=== PATIENT | female | born 1950 | race Caucasian/White ===

== ENCOUNTER 2017-09-07 15:54 | Observation (INO) | payer MEDICARE, BC ==
[2017-09-07] MEDS ORDERED: Famotidine 20 MG/2 ML SDV IVPUSH ONE (16:01)
[2017-09-07] MEDS ORDERED: Sodium Chloride 0.9% 10 ML Syringe FLUSH PRN ×2 (16:01→19:43)
--- NOTE | 2017-09-07 16:01 | EDM.PDOC ---
ED HPI GENERAL MEDICAL PROBLEM - General Chief Complaint: Syncope Stated Complaint: Syncope, laceration Time Seen by Provider: 09/07/17 15:55 Source of Information: Reports: Patient, Family (), Old Records ([facility] chart/EMR) History Limitations: Reports: No Limitations - History of Present Illness INITIAL COMMENTS - FREE TEXT/NARRATIVE: The patient was brought to the emergency room via private automobile by her for evaluation of a true syncopal episode, which occurred at about 15: 30 hours this afternoon. The patient was vacuuming the hardwood floor in her home when she had a true syncopal syncopal episode with no history of urine/ stool incontinence, seizure activity, postictal sedation, confusion, change in mental status, diplopia, visual changes, loss of consciousness, etc. The patient 's arrived to her side quickly thereafter with the patient having a small left eyebrow laceration, left-sided chest wall pain, and left humeral discomfort, which she rates at 5/10. No treatment prior to arrival. She has not had similar episodes in the past. She does complain of 5/10 pounding bilateral superior anterior headache with no history of significant headaches in the past other than at time of emergency room evaluation in this facility on 08/27/16. The patient denies any other chest pain/pressure, heart flutter, dizziness, orthostasis, orthopnea, diaphoresis, paresthesias, recent decreased exercise tolerance, or any other anginal-type symptoms. No recent history of abdominal pain, heartburn, nausea, diarrhea, melena, gross hematochezia, or any food intolerance, including fatty foods, etc.. The patient also denies any recent fever, cough, wheezing, dyspnea, etc.. Onset: Today, Sudden Onset Date: 09/07/17 Onset Time: 15:30 Duration: Constant Location: Reports: Head, Face, Chest, Upper Extremity, Left. Denies: Neck, Abdomen, Back, Upper Extremity, Right, Lower Extremity, Left, Lower Extremity, Right, Radiates to Quality: Reports: Ache, Same as Previous Episode Severity: Moderate Improves with: Reports: Rest Worsens with: Reports: Movement Context: Reports: Trauma (As above) Associated Symptoms: Reports: Chest Pain (Chest wall pain), Headaches, Syncope. 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 Denies: Cataract, Glaucoma, Macular Degeneration , Retinal Detachment Other HEENT History: Allergic rhinitis with chronic rhinosinusitis and eustachian tube dysfunction, nasal septum perforation requiring surgery/inserts as below, patient wears glasses, moderate bilateral hearing loss with no hearing aid therapy Cardiovascular History: Reports: Arrhythmia, Blood Clots/VTE/DVT, CAD, High Cholesterol, Other (See Below). 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 Denies: Asthma, COPD, Intubation, Difficult , PE, Pneumothorax, Pulmonary Fibrosis, Sleep Apnea Gastrointestinal History: Reports: Chronic Diarrhea. Denies: Celiac Disease, Cholelithiasis, Chronic Constipation, Colon Polyp, Diverticulosis, Gastritis, GERD, GI Bleed, Hepatitis, Hiatal Hernia, Inflammatory Bowel Disease, Irritable Bowel Syndrome, Jaundice, Pancreatitis Genitourinary History: Reports: None. Denies: Chronic Renal Insuffiency, Renal Calculus, STD, Urinary Incontinence, UTI, Recurrent SHIPMASTER History: Reports: Dysfunctional Uterine Bleeding, , Spontaneous , Therapeutic . Denies: Endometriosis, Fibroids : 5 Para: 4 (Full term without complications during pregnancies or deliveries) Other OB/BYN History: Menopause in her early 50s, voluntary AB about 6 weeks gestation at about age 16, dysmenorrhea with no previous diagnosis Musculoskeletal History: Reports: Arthritis, Back Pain, Chronic, Fracture, Fibromyalgia, Neck Pain, Chronic, Osteoarthritis, Osteoporosis, Other (See Below ). Denies: Amputation, Connective Tissue Disease, Gout, RA, SLE Other Musculoskeletal History: Severe myalgias since 2016 of unknown etiology possible fibromyalgia; Left wrist fractures x2 at ages 6 and age 11, Farris's cyst of the right knee Neurological History: Reports: Headaches, Chronic, Other (See Below). Denies: Cerebral Aneurysms, Concussion, CVA, Head Trauma, Migraines, MS, Neuropathy, Peripheral, Parkinson's, Seizure, TIA, Vertigo Other Neuro History: Very occasional headaches Psychiatric History: Reports: None. Denies: Abuse, Victim of, ADD, ADHD, Addiction, Anxiety, Depression, Psych Hospitalization(s), PTSD, Suicide Attempt , Suicidal Ideation Endocrine/Metabolic History: Reports: None, Osteoporosis Hematologic History: Reports: None. Denies: Anemia, Blood Transfusion(s), Iron Deficiency Immunologic History: Reports: None. Denies: AIDS, HIV, SLE Oncologic (Cancer) History: Reports: None. Denies: Basal Cell Carcinoma, Cervix , Hodgkin's Lymphoma, Leukemia, Lymphoma, Malignant Melanoma, Non-Hodgkin's Lymphoma Dermatologic History: Reports: None. Denies: Eczema, Psoriasis - Infectious Disease History Infectious Disease History: Reports: Chicken Pox (2 times), Measles. Denies: C- Difficile, Meningitis, Mononucleosis, MRSA, Mumps, Pertussis (Whooping Cough), Rheumatic Fever, Rubella, Scarlet Fever, Shingles, VRE - Past Surgical History Head Surgeries/Procedures: Reports: None HEENT Surgical History: Reports: Naso-Sinus Surgery, Oral Surgery, Other (See Below). Denies: Adenoidectomy, Laser Surgery, LASIK, Myringotomy w Tube(s), Tonsillectomy Other HEENT Surgeries/Procedures: [place] teeth extraction 4 at about 21; nasal septum perforation repair with the disc insertions recurrent initially at about age 51 Cardiovascular Surgical History: Reports: None. Denies: Varicose, Vascular Surgery Respiratory Surgical History: Reports: None. Denies: Lung Biopsies, Thoracentesis GI Surgical History: Reports: Appendectomy, Cholecystectomy, Other (See Below). Denies: Colon, Colonoscopy, EGD, Hernia, Abdominal, Hernia, Inguinal, Hernia Repair/Other, Polypectomy Other GI Surgeries/Procedures: Open cholecystectomy in 1972, appendectomy at age 6 Female Surgical History: Reports: D&C, Tubal Ligation, Other (See Below). Denies: Breast Biopsy, Hysterectomy, Salpingo-Oophorectomy Other Female Surgeries/Procedures: D&C secondary to intentionally be as above , D&C secondary to hemorrhage in 1969, bilateral tubal ligation at about age 25 Endocrine Surgical History: Reports: None. Denies: Thyroid Biopsy Neurological Surgical History: Reports: Lumbar Spine, Spinal Fusion, Other (See Below). Denies: C-Spine, Discectomy, Intracranial, Laminectomy Other Neurological Surgeries/Procedures: Spinal fusion of the lumbar spine in 1997 Musculoskeletal Surgical History: Reports: None. Denies: Arthroscopic Procedure , Carpal Tunnel, Ganglion Cyst, Joint Replacement, Knee Replacement, ORIF, Shoulder Surgery Oncologic Surgical History: Reports: None Dermatological Surgical History: Reports: None - Past Imaging History Past Imaging History: Reports: CAT Scan (Negative CT scan of the head on with previous evaluation on 07/19/14; CT of the sinuses on 03/29/04), DEXA Scan (09/09/11), Mammogram (Last mammogram on 09/12/07), Stress Testing ( Cardiolite stress test on 06/24/10 borderline Positive as above with normal ejection fraction of 71%), Ultrasound (Soft tissue ultrasound of the left scapular region on 04/27/17; Pelvic ultrasound on 02/03/04), Venous Doppler ( Right leg on 08/26/16 with results as above with previous negative venous Doppler study of the right leg on 09/07/11) Social & Family History - Family History HEENT: Reports: Glaucoma, Other (See Below). Denies: Macular Degeneration, Retinal Detachment Other HEENT Family History: Mother with glaucoma Cardiac: Reports: Blood Clots/VTE/DVT, Cardiomyopathy, High Cholesterol, AZ, Other (See Below). Denies: Afib, Aneurysm, Arrhythmia, CAD, Heart Failure, Heart Murmur, Hypertension, PVD/COD, Syncope Other Cardiac Family History: Mother with recurrent DVTs of the legs, brother with recurrent DVTs of the legs, brother with fatal AZ at age 71 secondary to an error in his chemotherapy and probable cardiomyopathy; same brother with hyperlipidemia but no known coronary artery disease Respiratory: Reports: Asthma, Sleep Apnea, Other (See Below). Denies: COPD, PE , Pneumothorax Other Respiratory Family Hisory: Brother with asthma and sleep apnea GI: Reports: Celiac Disease, Chronic Diarrhea, Colon Polyps, Other (See Below). Denies: Cholelithiasis, GERD, GI bleed, Inflammatory Bowel Disease, Irritable Bowel Syndrome, PUD Other GI Family History: Brother with celiac disease and polyps with additional colon cancer as below, mother with chronic diarrhea of unknown etiology : Reports: Renal Disease/Insufficiency, Other (See Below). Denies: Dialysis, Renal Calculus Other Family History: Brother with renal insufficiency OBGYN: Reports: None. Denies: Endometriosis, Recurrent Spontaneous Musculoskeletal: Reports: Arthritis, Osteoarthritis, Other (See Below). Denies : Fibromyalgia, Gout, RA, SLE Other Musculoskeletal Family History: Mother with osteoarthritis Neurological: Reports: Parkinson's, Other (See Below). Denies: Alzheimers Disease, Cerebral Aneurysms, CVA, Dementia, Migraines, MS, Seizure, TIA Other Neurological Family History: Brother with Parkinson's disease Psychiatric: Reports: Anxiety, Depression, Psych Hospitalization(s), Other (See Below). Denies: Abuse, Victim of, ADD, ADHD, PTSD, Suicide Attempt Other Psychiatric Family History: Mother with anxiety depression disorder with hospitalization required Endocrine/Metabolic: Reports: Diabetes, type II, IDDM, Other (See Below). Denies: Diabetes, Type I, Hypothyroidism Other Endocrine/Metabolic Family History: Brother and father with AODM Hematologic: Reports: None. Denies: Anemia, SLE Immunologic: Reports: None. Denies: AIDS, HIV, SLE Dermatologic: Reports: None. Denies: Eczema, Psoriasis Oncologic: Reports: Colon, Other (See Below). Denies: Breast, Cervix, Hodgkin' s Lymphoma, Leukemia, Lymphoma, Non-Hodgkin's Lymphoma, Ovarian, Skin, Uterine Other Oncologic Family History: Brother with fatal rectal/colon cancer cancer at age 71 however secondary to cardiac problem as above - Tobacco Use Smoking Status *Q: Never Smoker Smoking Cessation Information Provided To Patient: No Second Hand Smoke Exposure: No Second Hand Smoke Education Provided: No - Caffeine Use Caffeine Use: Reports: Coffee, Soda. Denies: Energy Drinks, Tea Caffeine Use Comment: 2 sodas per day, one cup of coffee per day - Alcohol Use Alcohol Use History: No Days Per Week of Alcohol Use: 0 (No previous DWIs, problems with alcohol abuse, etc.) Number of Drinks Per Day: 0 Total Drinks Per Week: 0 Alcohol Use in Last Twelve Months: No - Recreational Drug Use Recreational Drug Use: No Drug Use in Last 12 Months: No Recreational Drug Type: Denies: Amphetamines (Speed), Cocaine, Flunitrazepam, Inhalants (Glues, Solvents, Aerosols), LSD (Acid), Marijuana/Hashish, Methamphetamine, Morphine - Sexual History Sexual History: Reports: Sexually Active, Single Partner - Living Situation & Occupation Living situation: Reports: (1967, 4 children), with Family () 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 Denies: Fever, Chills, Malaise, Weakness , Fatigue, Night Sweats, Diaphoresis, Decreased Appetite, Weight Loss HEENT: Reports: Glasses, Other (Left eyebrow laceration). Denies: Dental Pain, Ear Discharge, Ear Pain, Hearing Loss, Rhinitis, Sinus Problem, Throat Pain, Throat Swelling, Vertigo, Vision Change Respiratory: Reports: Pleuritic Chest Pain (Left chest wall pain secondary to contusion). Denies: Shortness of Breath, Wheezing, Cough, Sputum, Hemoptysis Cardiovascular: Reports: Chest Pain (Left chest wall pain as above), Syncope. Denies: Blood Pressure Problem, Claudication, Dyspnea on Exertion, Edema, Lightheadedness, Orthopnea, Palpitations, PND Endocrine: Reports: No Symptoms. Denies: Fatigue GI/Abdominal: Reports: No Symptoms. Denies: Abdominal Pain, Anorexia, Black Stool, Bloody Stool, Constipation, Diarrhea, Decreased Appetite, Difficulty Swallowing, Distension, Hematemesis, Hematochezia, Melena, Nausea, Stool Incontinence, Vomiting : Reports: No Symptoms. Denies: Dysuria, Flank Pain, Frequency, Hematuria, Incontinence, Pain, Urgency, Urinary Retention Musculoskeletal: Reports: Joint Pain (Generalized arthralgias and myalgias), Muscle Pain. Denies: Neck Pain, Shoulder Pain, Arm Pain, Back Pain, Joint Swelling, Muscle Stiffness Skin: Reports: Bruising (Mild left forehead and supraorbital), Wound (As above) . Denies: Diaphoresis Neurological: Reports: Headache, Syncope. Denies: Confusion, Dizziness, Numbness, Paresthesia, Pre-Existing Deficit, Seizure, Tremors, Trouble Speaking , Difficulty Walking, Weakness, Change in Speech Psychiatric: Reports: No Symptoms. Denies: Agitation, Anxiety, Confusion, Depression, Hallucinations Hematologic/Lymphatic: Reports: No Symptoms Immunologic: Reports: No Symptoms ED EXAM, GENERAL - Physical Exam Exam: See Below Exam Limited By: No Limitations General Appearance: Alert, WD/WN, No Apparent Distress, Anxious (Mild to moderate) Eye Exam: Left Eye: Other (1.5 cm laceration over the mid left eyebrow with mild surrounding ecchymosis but no deformity, crepitation, or sign of fracture) , Bilateral Eye: EOMI, Normal Fundi, Normal Inspection (No nystagmus), PERRL Nose: Normal Inspection, Normal Mucosa, No Blood Throat/Mouth: Normal Teeth, Normal Gums, Normal Oropharynx, Normal Voice, No Airway Compromise. No: Normal Lips (0.25 cm superficial abrasion/laceration over the mid left upper lip not requiring repair), Dysphagia, Perioral Cyanosis Head: Normocephalic, Facial Tenderness (Mild palpation pain over laceration site ), Other (Additional mild ecchymosis in the left cheek region with no significant localized tenderness crepitation, etc.). No: Facial Swelling, Sinus Tenderness Neck: Normal Inspection, Supple, Non-Tender, Full Range of Motion. No: Carotid Bruit, Lymphadenopathy (L), Lymphadenopathy (R), Thyromegaly Respiratory/Chest: No Respiratory Distress, Lungs Clear, Normal Breath Sounds, No Accessory Muscle Use. No: Chest Non-Tender (Mild to moderate palpation pain over the mid lateral left chest wall region with no ecchymosis, crepitation, or sign of fracture), Pleural Rub, Retractions Cardiovascular: Normal Peripheral Pulses, Regular Rate, Rhythm, No Edema, No Gallop, No JVD, No Murmur, No Rub. No: Gallop/S3, Gallop/S4, Extra Beats (No extrasystoles at time of exam), Friction Rub Peripheral Pulses: 2+: Radial (L), Radial (R), Dorsalis Pedis (L), Dorsalis Pedis (R) GI/Abdominal: Normal Bowel Sounds, Soft, Non-Tender, No Organomegaly, No Distention, No Abnormal Bruit, No Mass, Pelvis Stable. No: Guarding (Female) Exam: Deferred Rectal (Female) Exam: Deferred Back Exam: Normal Inspection, Full Range of Motion. No: CVA Tenderness (L), CVA Tenderness (R), Muscle Spasm Extremities: Normal Range of Motion, No Pedal Edema, Normal Capillary Refill, Arm Pain (Mild palpation pain over the distal left humeral region with no ecchymosis, deformity, etc.). No: Jannie's Sign Neurological: Alert, Oriented, CN II-XII Intact, Normal Cognition, Normal Gait, Normal Reflexes (Negative Babinski's, finger to nose, and pronator rotation tests. No evidence of facial paresis, tongue deviation, orthostasis, etc.. Excellent reverse thought processes.), No Motor/Sensory Deficits Psychiatric: Anxious (Moderate), Depressed Mood (Possible mild with adequate eye contact) Skin Exam: No Rash, Ecchymosis (As above), Wound/Incision (As above). No: Diaphoretic Lymphatic: No Adenopathy ED GENERAL MEDICAL PROCEDURES - Laceration/Wound Repair Left Medial Brow Lac/wound length in cm: 1.5 Appearance: Superficial Distal NVT: Neuro & Vascular Intact, No Tendon Injury Anesthetic Type: Local Local Anesthesia - Lidocaine (Xylocaine): 1% Plain Local Anesthetic Volume: 4cc Skin Prep: Providone-Iodine (Betadine) Saline irrigation (cc's): 0 Exploration/Debridement/Repair: Wound Explored, In a Bloodless Field, Explored to Base, No Foreign Material Found Closed with: Sutures Suture Size: 4-0 # of Sutures: 4 Suture Type: Nylon, Interrupted, Simple Drain Placement: No Sterile Dressing Applied: Nurse Tetanus Status Addressed: Yes Complications: No Course - Vital Signs Last Recorded V/S: Last Vital Signs Temp 36.7 C 09/07/17 15:55 Pulse 72 09/07/17 18:15 Resp 16 09/07/17 18:15 BP 134/58 L 09/07/17 18:15 Pulse Ox 95 09/07/17 18:15 Vital Signs - 24 hr 09/07/17 09/07/17 09/07/17 15:55 16:40 17:00 Temperature [ 36.7 C Oral] Pulse, 78 80 80 Peripheral [ Pulse Oximetry] Respiratory 16 18 20 Rate Blood Pressure 146/87 H 141/58 H 141/59 H [Right Upper Arm] O2 Sat by Pulse 100 99 99 Oximetry 09/07/17 09/07/17 09/07/17 17:24 17:58 18:15 Temperature [ Oral] Pulse, 74 72 72 Peripheral [ Pulse Oximetry] Respiratory 20 16 16 Rate Blood Pressure 129/85 135/67 134/58 L [Right Upper Arm] O2 Sat by Pulse 99 96 95 Oximetry - Orders/Labs/Meds Orders: Active Orders 24 hr Category Date Time Status Peripheral IV Care [RC] . DIRECTED Care 09/07/17 16:01 Active Pulse Oximetry [RC] CONTINUOUS Care 09/07/17 16:01 Active Up With Assistance [RC] PFP Care 09/07/17 16:01 Active Vaccines to be Administered [RC] PER UNIT ROUTINE Care 09/07/17 18:24 Active Nothing per Oral Now Diet [DIET] Diet 09/07/17 Breakfast Active Chest PE [Ang Chest] [CT] Stat Exams 09/07/17 16:52 Taken Head wo Cont [CT] Stat Exams 09/07/17 16:03 Taken Humerus Lt [CR] Stat Exams 09/07/17 16:05 Taken Ribs 2V w Chest Lt [CR] Stat Exams 09/07/17 16:04 Taken PROLACTIN [REF] Stat Lab 09/07/17 16:35 Ordered Sodium Chloride 0.9% [Saline Flush] Med 09/07/17 16:01 Active 10 ml FLUSH ASDIRECTED PRN Obtain Past Medical Record [OM.PC] Urgent Oth 09/07/17 16:01 Active Peripheral IV Insertion Adult [OM.PC] Stat Oth 09/07/17 16:01 Ordered Resuscitation Status Stat Resus Stat 09/07/17 16:01 Ordered Medication Orders Sodium Chloride (Saline Flush) 10 ml FLUSH ASDIRECTED PRN PRN Reason: Keep Vein Open Labs: Laboratory Tests 09/07/17 09/07/17 09/07/17 Range/Units 16:10 16:10 16:10 WBC 5.7 (4.0-10.2) K/uL RBC 4.23 (3.77-5.09) M/uL Hgb 13.7 (11.7-15.5) g/dL Hct 40.4 (34.0-46.0) % MCV 95.5 (84.0-98.0) fL MCH 32.4 (28.2-33.3) pg MCHC 33.9 (31.7-36.0) g/dL RDW 12.3 (11.2-14.1) % Plt Count 180 (150-350) K/uL Neut % (Auto) 65.1 (45.0-80.0) % Lymph % (Auto) 26.5 (10.0-50.0) % [place] % (Auto) 6.8 (2.0-14.0) % Eos % (Auto) 1.2 (0.0-5.0) % Baso % (Auto) 0.4 (0.0-2.0) % Neut # (Auto) 3.71 (1.40-7.00) K/uL Lymph # (Auto) 1.51 (0.50-3.50) K/uL [place] # (Auto) 0.39 (0.00-1.00) K/uL Eos # (Auto) 0.07 (0.00-0.50) K/uL Baso # (Auto) 0.02 (0.00-0.20) K/uL PT 10.6 (9.8-11.7) SEC INR 1.0 APTT 22.2 (22.1-29.8) SEC D-Dimer, Quantitative 2320 H (0-400) ng/mL Sodium (136-145) mmol/L Potassium (3.5-5.1) mmol/L Chloride (98-107) mmol/L Carbon Dioxide (21.0-32.0) mmol/L BUN (7-18) mg/dL Creatinine (0.51-1.17) mg/dL Est Cr Clr Drug Dosing Estimated GFR (MDRD) mL/min Glucose (74-106) mg/dL Lactic Acid (0.4-2.0) mmol/L Uric Acid (2.6-7.2) mg/dL Calcium (8.5-10.1) mg/dL Magnesium (1.8-2.4) mg/dL Total Bilirubin (0.2-1.0) mg/dL AST (15-37) U/L ALT (12-78) U/L Alkaline Phosphatase (46-116) IU/L Creatine Kinase (26-308) U/L Creatine Kinase Index (0.0-2.5) % CK-MB (CK-2) (0.00-3.60) ng/mL Troponin I (0.000-0.056) ng/mL NT-Pro-B Natriuret Pep (0-125) pg/mL Total Protein (6.4-8.2) g/dL Albumin (3.4-5.0) g/dL TSH, Ultra Sensitive (0.358-3.740) mIU/mL 09/07/17 09/07/17 Range/Units 16:10 16:10 WBC (4.0-10.2) K/uL RBC (3.77-5.09) M/uL Hgb (11.7-15.5) g/dL Hct (34.0-46.0) % MCV (84.0-98.0) fL MCH (28.2-33.3) pg MCHC (31.7-36.0) g/dL RDW (11.2-14.1) % Plt Count (150-350) K/uL Neut % (Auto) (45.0-80.0) % Lymph % (Auto) (10.0-50.0) % [place] % (Auto) (2.0-14.0) % Eos % (Auto) (0.0-5.0) % Baso % (Auto) (0.0-2.0) % Neut # (Auto) (1.40-7.00) K/uL Lymph # (Auto) (0.50-3.50) K/uL [place] # (Auto) (0.00-1.00) K/uL Eos # (Auto) (0.00-0.50) K/uL Baso # (Auto) (0.00-0.20) K/uL PT (9.8-11.7) SEC INR APTT (22.1-29.8) SEC D-Dimer, Quantitative (0-400) ng/mL Sodium 144 (136-145) mmol/L Potassium 3.9 (3.5-5.1) mmol/L Chloride 108 H (98-107) mmol/L Carbon Dioxide 24.6 (21.0-32.0) mmol/L BUN 17 (7-18) mg/dL Creatinine 0.90 (0.51-1.17) mg/dL Est Cr Clr Drug Dosing TNP Estimated GFR (MDRD) > 60 mL/min Glucose 124 H (74-106) mg/dL Lactic Acid 0.8 (0.4-2.0) mmol/L Uric Acid 4.3 (2.6-7.2) mg/dL Calcium 8.9 (8.5-10.1) mg/dL Magnesium 2.1 (1.8-2.4) mg/dL Total Bilirubin 0.3 (0.2-1.0) mg/dL AST 20 (15-37) U/L ALT 28 (12-78) U/L Alkaline Phosphatase 44 L (46-116) IU/L Creatine Kinase 249 (26-308) U/L Creatine Kinase Index 0.8 (0.0-2.5) % CK-MB (CK-2) 2.00 (0.00-3.60) ng/mL Troponin I 0.001 (0.000-0.056) ng/mL NT-Pro-B Natriuret Pep 105 (0-125) pg/mL Total Protein 6.8 (6.4-8.2) g/dL Albumin 3.8 (3.4-5.0) g/dL TSH, Ultra Sensitive 1.542 (0.358-3.740) mIU/mL Meds: Medications Generic Name Dose Route Start Last Admin Trade Name Freq PRN Reason Stop Dose Admin Sodium Chloride 10 ml 09/07/17 16:01 Saline Flush FLUSH ASDIRECTED PRN Keep Vein Open Discontinued Medications Generic Name Dose Route Start Last Admin Trade Name Freq PRN Reason Stop Dose Admin Diphtheria/Tetanus/Acell Pertussis 0.5 ml 09/07/17 18:24 09/07/17 18:39 Adacel IM 09/07/17 18:25 0.5 ml .ONCE ONE Administration Famotidine 40 mg 09/07/17 16:01 09/07/17 16:20 Pepcid IVPUSH 09/07/17 16:02 40 mg ONETIME ONE Administration Iopamidol 100 ml 09/07/17 17:30 09/07/17 17:55 Isovue-370 (76%) IVPUSH 09/07/17 17:31 100 ml ONETIME ONE Administration Lidocaine HCl 5 ml 09/07/17 16:03 Xylocaine-Mpf 1% INJECT 09/07/17 16:04 ONETIME ONE Neomycin/Polymyxin/Bacitracin 1 each 09/07/17 16:03 09/07/17 18:15 Triple Antibiotic Oint TOP 09/07/17 16:04 1 each ONETIME ONE Administration - Radiology Interpretation Free Text/Narrative:: 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 Note moderate COPD changes and aortic valve calcification with probable pulmonary hypertension and/ or mild centralized CHF. No significant cardiomegaly X-rays of the left humerus, 2 views, shows no evidence of fracture or dislocation Telephone consultation at 16:33 hours with the radiology department at [facility] with verbal report of noncontrast CT scan of the head. No evidence of CVA, hemorrhages, or acute changes Subsequent telephone consultation at 17:54 hours with the radiology department at [facility] with negative preliminary verbal report of CTA of the chest for PE CT Results Date: 09/07/17 CT Results Time: 16:33 Departure - Departure Time of Disposition: 18:40 Disposition: Refer to Observation Clinical Impression: D-dimer, elevated, PVCs (premature ventricular contractions), Laceration Coronary artery disease Qualifiers: Coronary Disease-Associated Artery/Lesion type: [place] artery [place] vs. transplanted heart: [place] heart Associated angina: without angina Qualified Code(s): I25.10 - Atherosclerotic heart disease of [place] coronary artery without angina pectoris Allergic rhinitis Qualifiers: Allergic rhinitis trigger: other Allergic rhinitis seasonality: non-seasonal Headache Qualifiers: Headache type: tension-type Headache chronicity pattern: acute headache Intractability: not intractable Qualified Code(s): G44.209 - Tension-type headache, unspecified, not intractable Osteoarthritis Qualifiers: Osteoarthritis location: multiple joints Osteoarthritis type: primary Qualified Code(s): M15.0 - Primary generalized (osteo)arthritis Hyperlipidemia Qualifiers: Hyperlipidemia type: unspecified Qualified Code(s): E78.5 - Hyperlipidemia, unspecified Syncope Qualifiers: Syncope type: unspecified Qualified Code(s): R55 - Syncope and collapse DVT (deep venous thrombosis) Qualifiers: DVT location: lower extremity Affected thrombotic vein of extremity: unspecified vein of extremity Chronicity: acute Laterality: right Qualified Code (s): I82.401 - Acute embolism and thrombosis of unspecified deep veins of right lower extremity - Discharge Information Referrals: PCP,Unknown [Ordering Only Provider] - Forms: ED Department Discharge Care Plan Goals: See plan - Problem List & Annotations (1) Syncope SNOMED Code(s): 716113842 Code(s): R55 - SYNCOPE AND COLLAPSE Status: Acute Priority: High Current Visit: Yes Onset Date: 09/07/17 Annotation/Comment:: Her syncopal episode as above. Note negative CT of the head and CTA of the chest results as above. She will be admitted to observation status on telemetry with neurological checks and further evaluation of her heart status as below. Cardiology and/or neurological consultation depending on her clinical course. No direct evidence of seizure activity with prolactin level drawn with results pending. [facility] [place] assumes care in the a.m. Qualifiers: Syncope type: unspecified Qualified Code(s): R55 - Syncope and collapse (2) Coronary artery disease SNOMED Code(s): 70797617 Code(s): I25.10 - ATHSCL HEART DISEASE OF [place] CORONARY ARTERY W/O ANG PCTRS Status: Acute Priority: High Current Visit: Yes Annotation/Comment :: Possible anterior wall cardiac ischemia with borderline positive Cardiolite stress test in the past as above. Secondary to her syncope she would probably benefit from an echocardiogram and also a Cardiolite stress test on an outpatient basis. Initiate standard rule out [place] orders, however no chest pain or true anginal type symptoms. Chest pain protocol was not initiated in the emergency room secondary to absence of these symptoms Qualifiers: Coronary Disease-Associated Artery/Lesion type: [place] artery [place] vs. transplanted heart: [place] heart Associated angina: without angina Qualified Code(s): I25.10 - Atherosclerotic heart disease of [place] coronary artery without angina pectoris (3) D-dimer, elevated SNOMED Code(s): 054391008 Code(s): R79.89 - OTHER SPECIFIED ABNORMAL FINDINGS OF BLOOD CHEMISTRY Status: Acute Priority: High Current Visit: Yes Onset Date: 09/07/17 Annotation/Comment:: Note negative CTA of the chest as above with distant history of DVT. Initiate subcutaneous low-dose Lovenox with caution secondary to head injury. Venous Doppler studies of lower extremities in the a.m. (4) Headache SNOMED Code(s): 79941847 Code(s): R51 - HEADACHE Status: Acute Priority: High Current Visit: Yes Onset Date: 08/26/16 Annotation/Comment:: Only very occasional headaches in the past as above. CT scan of the head was negative for acute changes. Some tentative questions in the emergency room indicating possible mild concussion with neurological checks to be conducted with vitals. No neurological deficits during exam as above Qualifiers: Headache type: tension-type Headache chronicity pattern: acute headache Intractability: not intractable Qualified Code(s): G44.209 - Tension-type headache, unspecified, not intractable (5) Allergic rhinitis SNOMED Code(s): 28480368 Code(s): J30.9 - ALLERGIC RHINITIS, UNSPECIFIED Status: Chronic Priority : Medium Current Visit: Yes Annotation/Comment:: Stable by history despite headaches as above Qualifiers: Allergic rhinitis trigger: other Allergic rhinitis seasonality: non- seasonal (6) Osteoarthritis SNOMED Code(s): 957579583 Code(s): M19.90 - UNSPECIFIED OSTEOARTHRITIS, UNSPECIFIED SITE Status: Chronic Priority: Medium Current Visit: Yes Annotation/Comment:: Her regular provider still working up her general myalgias and arthralgias unknown etiology at this time. She is currently undergoing physical therapy, however symptoms remained refractory to therapy and continue to observe closely by her regular providers Qualifiers: Osteoarthritis location: multiple joints Osteoarthritis type: primary Qualified Code(s): M15.0 - Primary generalized (osteo)arthritis (7) Hyperlipidemia SNOMED Code(s): 79416240 Code(s): E78.5 - HYPERLIPIDEMIA, UNSPECIFIED Status: Chronic Priority: Medium Current Visit: Yes Annotation/Comment:: No current medical therapy. Lipid panel and glycosylated hemoglobin to be conducted in the a.m. secondary to her syncope and risk factors including possible anterior wall cardiac ischemia Qualifiers: Hyperlipidemia type: unspecified Qualified Code(s): E78.5 - Hyperlipidemia , unspecified (8) PVCs (premature ventricular contractions) SNOMED Code(s): 52006713 Code(s): I49.3 - VENTRICULAR PREMATURE DEPOLARIZATION Status: Chronic Priority: Medium Current Visit: Yes Annotation/Comment:: Persistent occasional PVCs with known history of bigeminy by exercise as above. Observe for now (9) Laceration SNOMED Code(s): 340152398 Code(s): BXZ8689 - Status: Acute Priority: High Current Visit: Yes Onset Date: 09/07/17 Annotation/Comment:: Last TD booster on 11/11/04. DTaP given in the emergency room. Excellent results with laceration repair as above. - Problem List Review Problem List Initiated/Reviewed/Updated: Yes - My Orders Last 24 Hours: My Active Orders 09/07/17 16:01 Peripheral IV Care [RC] . DIRECTED Pulse Oximetry [RC] CONTINUOUS Up With Assistance [RC] PFP Sodium Chloride 0.9% [Saline Flush] 10 ml FLUSH ASDIRECTED PRN Obtain Past Medical Record [OM.PC] Urgent Peripheral IV Insertion Adult [OM.PC] Stat Resuscitation Status Stat 09/07/17 16:03 Head wo Cont [CT] Stat 09/07/17 16:04 Ribs 2V w Chest Lt [CR] Stat 09/07/17 16:05 Humerus Lt [CR] Stat 09/07/17 16:35 PROLACTIN [REF] Stat 09/07/17 16:52 Chest PE [Ang Chest] [CT] Stat 09/07/17 18:24 Vaccines to be Administered [RC] PER UNIT ROUTINE 09/07/17 Breakfast Nothing per Oral Now Diet [DIET] - Assessment/Plan Admission H&P: Please use this note as an admission H&P Last 24 Hours: My Active Orders 09/07/17 16:01 Peripheral IV Care [RC] . DIRECTED Pulse Oximetry [RC] CONTINUOUS Up With Assistance [RC] PFP Sodium Chloride 0.9% [Saline Flush] 10 ml FLUSH ASDIRECTED PRN Obtain Past Medical Record [OM.PC] Urgent Peripheral IV Insertion Adult [OM.PC] Stat Resuscitation Status Stat 09/07/17 16:03 Head wo Cont [CT] Stat 09/07/17 16:04 Ribs 2V w Chest Lt [CR] Stat 09/07/17 16:05 Humerus Lt [CR] Stat 09/07/17 16:35 PROLACTIN [REF] Stat 09/07/17 16:52 Chest PE [Ang Chest] [CT] Stat 09/07/17 18:24 Vaccines to be Administered [RC] PER UNIT ROUTINE 09/07/17 Breakfast Nothing per Oral Now Diet [DIET] Assessment:: As above Plan: As above. Extensive precautions were given to the patient and her , who are in agreement with the treatment plan. The patient's condition is stable enough for observation status and general supervision.
[2017-09-07] MEDS ORDERED: Bacitracin/Neomycin/Polymyxin B Oint 0.9 GM U/D Packet TOP ONE (16:03)
[2017-09-07 16:40] LABS: CHLORIDE,CL 108 mmol/L (98-107); SODIUM,NA 144 mmol/L (136-145)
[2017-09-07] MEDS ORDERED: Iopamidol 755 Mg/ML 100 ML Bottle IVPUSH ONE (17:30)
[2017-09-07] MEDS ORDERED: Diphtheria,Pertussis(Acell),Tetanus Vaccine 0.5 ML SDV IM ONE (18:24)
[2017-09-07] MEDS ORDERED: Temazepam 15 MG Cap PO PRN (19:43)
[2017-09-07] MEDS ORDERED: Enoxaparin 40 MG/0.4 ML Syringe SUBCUT SCH (20:00)
[2017-09-07] MEDS: Acetaminophen 325 MG Tab PO PRN (20:14)
[2017-09-07] MEDS: traMADol 50 MG Tab PO PRN (22:19)
[2017-09-08] MEDS: Acetaminophen 325 MG Tab PO PRN ×2 (00:20→07:22)
[2017-09-08 07:38] LABS: CHLORIDE,CL 107 mmol/L (98-107); SODIUM,NA 143 mmol/L (136-145)
[2017-09-08] MEDS ORDERED: Aspirin 81 MG Tab.Chew PO SCH (08:00)
[2017-09-08] MEDS ORDERED: Bacitracin/Neomycin/Polymyxin B Oint 0.9 GM U/D Packet TOP SCH (08:00)
[2017-09-08] MEDS: traMADol 50 MG Tab PO PRN (11:18)
[2017-09-08 11:29] VITALS: BP 125/65
--- NOTE | 2017-09-08 13:23 | PCM.PN ---
- General Info Date of Service: 09/08/17 Admission Dx/Problem (Free Text): Syncopal episode with fall - Review of Systems General: Reports: Other (head, left ribs and left arm pain, ache) HEENT: Reports: Headaches (from fall, laceration above left eye, left eye hematoma) Pulmonary: Reports: No Symptoms Cardiovascular: Reports: No Symptoms Gastrointestinal: Reports: Decreased Appetite Genitourinary: Reports: No Symptoms Musculoskeletal: Reports: Arm Pain (left) Skin: Reports: Bruising (around left eye/face) Neurological: Reports: No Symptoms Psychiatric: Reports: No Symptoms - Patient Data Vitals - Most Recent: Last Vital Signs Temp 97.1 F 09/08/17 11:28 Pulse 70 09/08/17 11:28 Resp 15 09/08/17 11:28 BP 125/65 09/08/17 11:28 Pulse Ox 100 09/08/17 11:28 Weight - Most Recent: 156 lb 14.4 oz I&O - Last 24 Hours: Intake & Output 09/07/17 09/08/17 09/08/17 22:59 06:59 14:59 Intake Total 90 Balance 90 Lab Results Last 24 Hours: Laboratory Results - last 24 hr 09/07/17 09/08/17 09/08/17 Range/Units 22:25 06:52 06:52 WBC 5.3 (4.0-10.2) K/uL RBC 4.15 (3.77-5.09) M/uL Hgb 13.3 (11.7-15.5) g/dL Hct 40.1 (34.0-46.0) % MCV 96.6 (84.0-98.0) fL MCH 32.0 (28.2-33.3) pg MCHC 33.2 (31.7-36.0) g/dL RDW 12.4 (11.2-14.1) % Plt Count 158 (150-350) K/uL Neut % (Auto) 72.6 (45.0-80.0) % Lymph % (Auto) 18.7 (10.0-50.0) % [place] % (Auto) 7.2 (2.0-14.0) % Eos % (Auto) 1.3 (0.0-5.0) % Baso % (Auto) 0.2 (0.0-2.0) % Neut # (Auto) 3.81 (1.40-7.00) K/uL Lymph # (Auto) 0.98 (0.50-3.50) K/uL [place] # (Auto) 0.38 (0.00-1.00) K/uL Eos # (Auto) 0.07 (0.00-0.50) K/uL Baso # (Auto) 0.01 (0.00-0.20) K/uL D-Dimer, Quantitative 951 H (0-400) ng/mL Sodium (136-145) mmol/L Potassium (3.5-5.1) mmol/L Chloride (98-107) mmol/L Carbon Dioxide (21.0-32.0) mmol/L BUN (7-18) mg/dL Creatinine (0.51-1.17) mg/dL Est Cr Clr Drug Dosing mL/min Estimated GFR (MDRD) mL/min Glucose (74-106) mg/dL Hemoglobin A1c (4.3-5.7) % Calcium (8.5-10.1) mg/dL Total Bilirubin (0.2-1.0) mg/dL AST (15-37) U/L ALT (12-78) U/L Alkaline Phosphatase (46-116) IU/L Creatine Kinase 232 (26-308) U/L Creatine Kinase Index 0.6 (0.0-2.5) % CK-MB (CK-2) 1.50 (0.00-3.60) ng/mL Troponin I 0.009 (0.000-0.056) ng/mL Total Protein (6.4-8.2) g/dL Albumin (3.4-5.0) g/dL Triglycerides (30-150) mg/dL Cholesterol (100-200) mg/dL LDL Cholesterol, Calc (0-100) mg/dL HDL Cholesterol (40-60) mg/dL 09/08/17 09/08/17 Range/Units 06:52 06:52 WBC (4.0-10.2) K/uL RBC (3.77-5.09) M/uL Hgb (11.7-15.5) g/dL Hct (34.0-46.0) % MCV (84.0-98.0) fL MCH (28.2-33.3) pg MCHC (31.7-36.0) g/dL RDW (11.2-14.1) % Plt Count (150-350) K/uL Neut % (Auto) (45.0-80.0) % Lymph % (Auto) (10.0-50.0) % [place] % (Auto) (2.0-14.0) % Eos % (Auto) (0.0-5.0) % Baso % (Auto) (0.0-2.0) % Neut # (Auto) (1.40-7.00) K/uL Lymph # (Auto) (0.50-3.50) K/uL [place] # (Auto) (0.00-1.00) K/uL Eos # (Auto) (0.00-0.50) K/uL Baso # (Auto) (0.00-0.20) K/uL D-Dimer, Quantitative (0-400) ng/mL Sodium 143 (136-145) mmol/L Potassium 3.8 (3.5-5.1) mmol/L Chloride 107 (98-107) mmol/L Carbon Dioxide 27.5 (21.0-32.0) mmol/L BUN 14 (7-18) mg/dL Creatinine 0.84 (0.51-1.17) mg/dL Est Cr Clr Drug Dosing 52.10 mL/min Estimated GFR (MDRD) > 60 mL/min Glucose 96 (74-106) mg/dL Hemoglobin A1c 5.3 (4.3-5.7) % Calcium 8.9 (8.5-10.1) mg/dL Total Bilirubin 0.6 (0.2-1.0) mg/dL AST 16 (15-37) U/L ALT 24 (12-78) U/L Alkaline Phosphatase 39 L (46-116) IU/L Creatine Kinase 185 (26-308) U/L Creatine Kinase Index 0.6 (0.0-2.5) % CK-MB (CK-2) 1.10 (0.00-3.60) ng/mL Troponin I 0.006 (0.000-0.056) ng/mL Total Protein 6.4 (6.4-8.2) g/dL Albumin 3.4 (3.4-5.0) g/dL Triglycerides 108 (30-150) mg/dL Cholesterol 213 H (100-200) mg/dL LDL Cholesterol, Calc 123 H (0-100) mg/dL HDL Cholesterol 68 H (40-60) mg/dL Med Orders - Current: Current Medications Acetaminophen (Tylenol) 650 mg PO Q4H PRN PRN Reason: Pain Last Admin: 09/08/17 07:22 Dose: 650 mg Aspirin (Aspirin) 81 mg PO DAILY [facility] Last Admin: 09/08/17 07:11 Dose: 81 mg Enoxaparin Sodium (Lovenox) 40 mg SUBCUT Q24H [facility] Last Admin: 09/07/17 20:14 Dose: 40 mg Neomycin/Polymyxin/Bacitracin (Triple Antibiotic Oint) 0 each TOP BID [facility] Last Admin: 09/08/17 07:12 Dose: 1 each Sodium Chloride (Saline Flush) 10 ml FLUSH ASDIRECTED PRN PRN Reason: Keep Vein Open Sodium Chloride (Saline Flush) 10 ml FLUSH Q12H PRN PRN Reason: Keep Vein Open Temazepam (Restoril) 15 mg PO BEDTIME PRN PRN Reason: Insomnia Last Admin: 09/08/17 00:20 Dose: 15 mg Tramadol HCl (Ultram) 50 mg PO Q6H PRN PRN Reason: Breakthrough Pain Last Admin: 09/08/17 11:18 Dose: 50 mg Discontinued Medications Diphtheria/Tetanus/Acell Pertussis (Adacel) 0.5 ml IM .ONCE ONE Stop: 09/07/17 18:25 Last Admin: 09/07/17 18:39 Dose: 0.5 ml Famotidine (Pepcid) 40 mg IVPUSH ONETIME ONE Stop: 09/07/17 16:02 Last Admin: 09/07/17 16:20 Dose: 40 mg Iopamidol (Isovue-370 (76%)) 100 ml IVPUSH ONETIME ONE Stop: 09/07/17 17:31 Last Admin: 09/07/17 17:55 Dose: 100 ml Lidocaine HCl (Xylocaine-Mpf 1%) 5 ml INJECT ONETIME ONE Stop: 09/07/17 16:04 Neomycin/Polymyxin/Bacitracin (Triple Antibiotic Oint) 1 each TOP ONETIME ONE Stop: 09/07/17 16:04 Last Admin: 09/07/17 18:15 Dose: 1 each - Exam General: Alert, Oriented HEENT: Pupils Equal, Pupils Reactive, EOMI, Mucous Membr. Moist/[place], Other ( significant left periorbital hematoma) Neck: Supple, Trachea Midline Lungs: Clear to Auscultation, Normal Respiratory Effort Cardiovascular: Regular Rate, Regular Rhythm GI/Abdominal Exam: Normal Bowel Sounds, Soft, Non-Tender, No Organomegaly (Female) Exam: Deferred Back Exam: Normal Inspection Extremities: No Pedal Edema Skin: Warm, Dry Wound/Incisions: Dressing Dry and Intact, No Drainage Neurological: No New Focal Deficit Psy/Mental Status: Alert, Normal Affect, Normal Mood - Problem List & Annotations (1) Fractured rib SNOMED Code(s): 95856652 Code(s): S22.39XA - FRACTURE OF ONE RIB, UNSP SIDE, INIT FOR CLOS FX Status : Acute Priority: Medium Current Visit: Yes Onset Date: 09/07/17 Qualifiers: Rib fracture type: single rib Fracture type: closed Laterality: left Annotation/Comment:: fall at home last night - Problem List Review Problem List Initiated/Reviewed/Updated: Yes - My Orders Last 24 Hours: My Active Orders 09/08/17 Lunch Regular Diet [DIET] - Assessment Assessment:: Syncopal episode Fall Left eyebrow laceration Left periorbital hematoma Concussion Left 8th rib fracture - Plan Plan:: 09-08-17 Will discharge to home today with family. Discussed the left rib fracture, instructed on deep breathing and cough. Will see [place] [facility] [place] five days for follow -up and suture removal, or sooner should any symptoms recur. Scheduling Cardiolyte stress test and Echocardiogram on OP basis.
--- NOTE | 2017-09-08 13:46 | PCM.DCSUM1 ---
Discharge Summary - Hospital Course Brief History: Came in to the ER yesterday after a syncopal episode that resulted in fall at home. - Discharge Data Discharge Date: 09/08/17 Discharge Disposition: Home, Self-Care 01 Condition: Good - Discharge Diagnosis/Problem(s) (1) Fractured rib SNOMED Code(s): 83161790 ICD Code: S22.39XA - FRACTURE OF ONE RIB, UNSP SIDE, INIT FOR CLOS FX Status: Acute Priority: Medium Current Visit: Yes Onset Date: 09/07/17 Problem Details: fall at home last night Qualifiers: Rib fracture type: single rib Fracture type: closed Laterality: left - Patient Instructions Diet: Regular Diet as Tolerated (Add more protein, a little less junk food! Increase water intake.), Drink 8-10+ Glasses/Day Activity: No Strenuous Activities (for at least one week), Rest and Relax Today Driving: Do Not Drive (at least through the weekend) Showering/Bathing: May Shower Wound/Incision Care: Keep Operative Site/Wound Site Clean and Dry ((laceration site)) Notify Provider of: Fever, Increased Pain, Swelling and Redness, Drainage, Nausea and/or Vomiting Other/Special Instructions: You are scheduled for an Echocardiogram September 12 at 2pm. Hospital will call you with the appointment for the Cardiac Stress Test. See me in the clinic in five days to remove the sutures. - Discharge Plan Prescriptions/Med Rec: traMADol [Ultram] 50 mg PO Q6H PRN #20 tablet PRN Reason: Breakthrough Pain Home Medications: Home Meds Aspirin 81 mg PO DAILY 09/07/17 [History] traMADol [Ultram] 50 mg PO Q6H PRN #20 tablet 09/08/17 [Rx] Forms: ED Department Discharge - Discharge Summary/Plan Comment DC Time >30 min.: Yes (Discharge time 45 minutes.) Discharge Summary/Plan Comment: Discharging to home with family today. Discussed all work-up with patient and family. Planning suture removal and follow-up in five days at [facility]. Scheduled for Echocardiogram - at 1400, scheduled Cardiolyte stress test. - Patient Data Vitals - Most Recent: Last Vital Signs Temp 97.1 F 09/08/17 11:28 Pulse 70 09/08/17 11:28 Resp 15 09/08/17 11:28 BP 125/65 09/08/17 11:28 Pulse Ox 100 09/08/17 11:28 Weight - Most Recent: 156 lb 14.4 oz I&O - Last 24 hours: Intake & Output 09/07/17 09/08/17 09/08/17 22:59 06:59 14:59 Intake Total 90 Balance 90 Lab Results - Last 24 hrs: Laboratory Results - last 24 hr 09/07/17 09/08/17 09/08/17 Range/Units 22:25 06:52 06:52 WBC 5.3 (4.0-10.2) K/uL RBC 4.15 (3.77-5.09) M/uL Hgb 13.3 (11.7-15.5) g/dL Hct 40.1 (34.0-46.0) % MCV 96.6 (84.0-98.0) fL MCH 32.0 (28.2-33.3) pg MCHC 33.2 (31.7-36.0) g/dL RDW 12.4 (11.2-14.1) % Plt Count 158 (150-350) K/uL Neut % (Auto) 72.6 (45.0-80.0) % Lymph % (Auto) 18.7 (10.0-50.0) % [place] % (Auto) 7.2 (2.0-14.0) % Eos % (Auto) 1.3 (0.0-5.0) % Baso % (Auto) 0.2 (0.0-2.0) % Neut # (Auto) 3.81 (1.40-7.00) K/uL Lymph # (Auto) 0.98 (0.50-3.50) K/uL [place] # (Auto) 0.38 (0.00-1.00) K/uL Eos # (Auto) 0.07 (0.00-0.50) K/uL Baso # (Auto) 0.01 (0.00-0.20) K/uL D-Dimer, Quantitative 951 H (0-400) ng/mL Sodium (136-145) mmol/L Potassium (3.5-5.1) mmol/L Chloride (98-107) mmol/L Carbon Dioxide (21.0-32.0) mmol/L BUN (7-18) mg/dL Creatinine (0.51-1.17) mg/dL Est Cr Clr Drug Dosing mL/min Estimated GFR (MDRD) mL/min Glucose (74-106) mg/dL Hemoglobin A1c (4.3-5.7) % Calcium (8.5-10.1) mg/dL Total Bilirubin (0.2-1.0) mg/dL AST (15-37) U/L ALT (12-78) U/L Alkaline Phosphatase (46-116) IU/L Creatine Kinase 232 (26-308) U/L Creatine Kinase Index 0.6 (0.0-2.5) % CK-MB (CK-2) 1.50 (0.00-3.60) ng/mL Troponin I 0.009 (0.000-0.056) ng/mL Total Protein (6.4-8.2) g/dL Albumin (3.4-5.0) g/dL Triglycerides (30-150) mg/dL Cholesterol (100-200) mg/dL LDL Cholesterol, Calc (0-100) mg/dL HDL Cholesterol (40-60) mg/dL 09/08/17 09/08/17 Range/Units 06:52 06:52 WBC (4.0-10.2) K/uL RBC (3.77-5.09) M/uL Hgb (11.7-15.5) g/dL Hct (34.0-46.0) % MCV (84.0-98.0) fL MCH (28.2-33.3) pg MCHC (31.7-36.0) g/dL RDW (11.2-14.1) % Plt Count (150-350) K/uL Neut % (Auto) (45.0-80.0) % Lymph % (Auto) (10.0-50.0) % [place] % (Auto) (2.0-14.0) % Eos % (Auto) (0.0-5.0) % Baso % (Auto) (0.0-2.0) % Neut # (Auto) (1.40-7.00) K/uL Lymph # (Auto) (0.50-3.50) K/uL [place] # (Auto) (0.00-1.00) K/uL Eos # (Auto) (0.00-0.50) K/uL Baso # (Auto) (0.00-0.20) K/uL D-Dimer, Quantitative (0-400) ng/mL Sodium 143 (136-145) mmol/L Potassium 3.8 (3.5-5.1) mmol/L Chloride 107 (98-107) mmol/L Carbon Dioxide 27.5 (21.0-32.0) mmol/L BUN 14 (7-18) mg/dL Creatinine 0.84 (0.51-1.17) mg/dL Est Cr Clr Drug Dosing 52.10 mL/min Estimated GFR (MDRD) > 60 mL/min Glucose 96 (74-106) mg/dL Hemoglobin A1c 5.3 (4.3-5.7) % Calcium 8.9 (8.5-10.1) mg/dL Total Bilirubin 0.6 (0.2-1.0) mg/dL AST 16 (15-37) U/L ALT 24 (12-78) U/L Alkaline Phosphatase 39 L (46-116) IU/L Creatine Kinase 185 (26-308) U/L Creatine Kinase Index 0.6 (0.0-2.5) % CK-MB (CK-2) 1.10 (0.00-3.60) ng/mL Troponin I 0.006 (0.000-0.056) ng/mL Total Protein 6.4 (6.4-8.2) g/dL Albumin 3.4 (3.4-5.0) g/dL Triglycerides 108 (30-150) mg/dL Cholesterol 213 H (100-200) mg/dL LDL Cholesterol, Calc 123 H (0-100) mg/dL HDL Cholesterol 68 H (40-60) mg/dL Med Orders - Current: Current Medications Acetaminophen (Tylenol) 650 mg PO Q4H PRN PRN Reason: Pain Last Admin: 09/08/17 07:22 Dose: 650 mg Aspirin (Aspirin) 81 mg PO DAILY [facility] Last Admin: 09/08/17 07:11 Dose: 81 mg Enoxaparin Sodium (Lovenox) 40 mg SUBCUT Q24H [facility] Last Admin: 09/07/17 20:14 Dose: 40 mg Neomycin/Polymyxin/Bacitracin (Triple Antibiotic Oint) 0 each TOP BID [facility] Last Admin: 09/08/17 07:12 Dose: 1 each Sodium Chloride (Saline Flush) 10 ml FLUSH ASDIRECTED PRN PRN Reason: Keep Vein Open Sodium Chloride (Saline Flush) 10 ml FLUSH Q12H PRN PRN Reason: Keep Vein Open Temazepam (Restoril) 15 mg PO BEDTIME PRN PRN Reason: Insomnia Last Admin: 09/08/17 00:20 Dose: 15 mg Tramadol HCl (Ultram) 50 mg PO Q6H PRN PRN Reason: Breakthrough Pain Last Admin: 09/08/17 11:18 Dose: 50 mg Discontinued Medications Diphtheria/Tetanus/Acell Pertussis (Adacel) 0.5 ml IM .ONCE ONE Stop: 09/07/17 18:25 Last Admin: 09/07/17 18:39 Dose: 0.5 ml Famotidine (Pepcid) 40 mg IVPUSH ONETIME ONE Stop: 09/07/17 16:02 Last Admin: 09/07/17 16:20 Dose: 40 mg Iopamidol (Isovue-370 (76%)) 100 ml IVPUSH ONETIME ONE Stop: 09/07/17 17:31 Last Admin: 09/07/17 17:55 Dose: 100 ml Lidocaine HCl (Xylocaine-Mpf 1%) 5 ml INJECT ONETIME ONE Stop: 09/07/17 16:04 Neomycin/Polymyxin/Bacitracin (Triple Antibiotic Oint) 1 each TOP ONETIME ONE Stop: 09/07/17 16:04 Last Admin: 09/07/17 18:15 Dose: 1 each *Q Meaningful Use (DIS) - VTE *Q VTE Criteria *Q: - Stroke *Q Stroke Criteria *Q: - AMI *Q AMI Criteria *Q:
== END 2017-09-08 14:25 | disposition home or self-care (01) ==
LOC: LL.ED 15:54 → LL.MS 18:40
PROVIDERS: ADMIT Family Medicine; ATTEND Family Medicine
DX: S22.32XA Fracture of one rib, left side, initial encounter for closed fracture (principal); R79.89 Other specified abnormal findings of blood chemistry; G44.209 Tension-type headache, unspecified, not intractable; I25.10 Atherosclerotic heart disease of native coronary artery without angina pectoris; E78.00 Pure hypercholesterolemia, unspecified; K52.9 Noninfective gastroenteritis and colitis, unspecified; J30.9 Allergic rhinitis, unspecified; M15.0 Primary generalized (osteo)arthritis; E78.5 Hyperlipidemia, unspecified; I49.3 Ventricular premature depolarization; Y92.009 Unspecified place in unspecified non-institutional (private) residence as the place of occurrence of the external cause; W19.XXXA Unspecified fall, initial encounter; Z79.82 Long term (current) use of aspirin; Z79.899 Other long term (current) drug therapy; Z88.0 Allergy status to penicillin; Z90.49 Acquired absence of other specified parts of digestive tract; Z98.890 Other specified postprocedural states
CPT/HCPCS: 36415; 70450; 71101; 71275; 73060; 80053; 80061; 82550; 82553; 83036; 83605; 83735; 83880; 84146; 84443; 84484; 84550; 85025; 85379; 85610; 85730; 90471; 90715; 93005; 93970; 96374; 99285; A9270; J1650; Q9967; 12011; 96372; 99220; G0378; S0028

== ENCOUNTER 2022-09-24 14:34 | Emergency (ER) | payer MEDICARE ==
[2022-09-24 14:45] VITALS: BP 121/56; PULSE 83
[2022-09-24 15:27] LABS: CORONAVIRUS COVID-19 NAA NEGATIVE (NEGATIVE); RESPIRATORY SYNCYTIAL VIR NAA NEGATIVE (NEGATIVE)
[2022-09-24 15:39] LABS: CHLORIDE,CL 108 mmol/L (98-107); SODIUM,NA 145 mmol/L (136-145)
[2022-09-24 15:41] LABS: ANION GAP 11.5 meq/L (7-15); ESTIMATED GFR 56 mL/min (>=60)
[2022-09-24] MEDS ORDERED: predniSONE 20 MG Tab PO ONE (16:09)
== END 2022-09-24 16:30 | disposition home or self-care (01) ==
LOC: LL.ED 14:34
DX: J98.8 Other specified respiratory disorders (principal); I25.10 Atherosclerotic heart disease of native coronary artery without angina pectoris; Z88.0 Allergy status to penicillin; Z79.82 Long term (current) use of aspirin; Z79.899 Other long term (current) drug therapy; Z20.822 Contact with and (suspected) exposure to COVID-19
CPT/HCPCS: 0241U; 36415; 71046; 80053; 83605; 83880; 85025; 85379; 99284; J7512

== ENCOUNTER 2023-07-17 18:08 | Emergency (ER) | payer MEDICARE ==
[2023-07-17 18:16] VITALS: BP 136/83; PULSE 92
[2023-07-17] MEDS: Cephalexin 500 MG Cap PO ONE (19:46)
[2023-07-17] MEDS: Bacitracin/Neomycin/Polymyxin B Oint 0.9 GM U/D Packet TOP ONE (19:46)
== END 2023-07-17 19:50 | disposition home or self-care (01) ==
LOC: LL.ED 18:08
DX: S62.660B Nondisplaced fracture of distal phalanx of right index finger, initial encounter for open fracture (principal); S61.210A Laceration without foreign body of right index finger without damage to nail, initial encounter; I25.10 Atherosclerotic heart disease of native coronary artery without angina pectoris; Z86.718 Personal history of other venous thrombosis and embolism; Z88.0 Allergy status to penicillin; Z88.8 Allergy status to other drugs, medicaments and biological substances; Z79.01 Long term (current) use of anticoagulants; W23.0XXA Caught, crushed, jammed, or pinched between moving objects, initial encounter
CPT/HCPCS: 73140; 99283; A9270